=== PATIENT | female | born 1990 | race Caucasian/White ===

== ENCOUNTER 2016-05-16 12:42 | Emergency (ER) | payer BC ==
[2016-05-16 13:06] VITALS: BP 142/89
--- NOTE | 2016-05-16 14:41 | EDM.PDOC ---
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 She started with spotting 3 days ago and then passed clots Rosa. Today she passed what she thought was tissue. She reports cramping and rates the pain 4/10. She had sharp pain about 1week ago which resolved. She had a negative home test two weeks ago but is worried that she is miscarrying. She is 1 para 1. No previous miscarriages. She has 1 living child. Her periods are normally regular and not this heavy. She reports mild nausea 1 week ago. She reports feeling lightheaded for a couple minutes today but otherwise no syncope or near syncope. She denies dysuria, frequency, urgency, and flank pain. She has a history of ovarian cysts and says she felt like she had a cyst last week. Her PCP is Leila Borrego [facility] [employer] [facility] [employer] and she saw Dr. Ortiz with her first . - Related Data Allergies/ADRs: Allergies Allergy/AdvReac Type Severity Reaction Status Date / Time No Known Allergies Allergy Verified 05/16/16 13:07 Home Meds: Home Meds Albuterol Inhaler. 2 puff INH Q6H PRN 09/10/14 [History] Citalopram [Citalopram HBr] 40 mg PO DAILY 09/10/14 [History] Fluticasone/Salmeterol [Advair Diskus 250-50] 1 puff INH DAILY PRN 09/10/14 [ History] Past Medical History - Past Health History Medical/Surgical History: Denies Medical/Surgical History Respiratory History: Reports: Asthma Social & Family History - Tobacco Use Smoking Status *Q: Never Smoker Second Hand Smoke Exposure: No - Alcohol Use Days Per Week of Alcohol Use: 0 - Recreational Drug Use Recreational Drug Use: No ED ROS GENERAL - Review of Systems Review Of Systems: See Below Constitutional: Reports: no symptoms. Denies: fever, chills, diaphoresis Respiratory: Reports: No Symptoms. Denies: Shortness of Breath Cardiovascular: Reports: No symptoms. Denies: Chest pain GI/Abdominal: Reports: Abdominal pain, Nausea. Denies: Diarrhea, Vomiting : Reports: other (passing clots ). Denies: dysuria, flank pain, frequency, urgency ED EXAM, RENAL/ - Physical Exam Exam: See Below Exam Limited By: No limitations General Appearance: alert, no apparent distress, obese Respiratory/Chest: no respiratory distress, lungs clear, normal breath sounds Cardiovascular: regular rate, rhythm GI/Abdominal: normal bowel sounds, soft, non tender, no distention (Female) Exam: Other (mild tenderness over pelvic region with deep palpation , no peritioneal inflammation signs, no guarding, no rigidity) Back Exam: normal inspection, full range of motion. No: CVA tenderness (L), CVA tenderness (R) Course - Vital Signs Last Recorded V/S: Last Vital Signs Temp 97.7 F 05/16/16 13:05 Pulse 69 05/16/16 13:05 Resp BP 142/89 H 05/16/16 13:05 Pulse Ox 100 05/16/16 13:05 - Orders/Labs/Meds Labs: Laboratory Tests 05/16/16 05/16/16 05/16/16 Range/Units 13:30 13:45 13:45 WBC 8.12 (3.98-10.04) K/mm3 RBC 4.48 (3.98-5.22) M/mm3 Hgb 12.7 (11.2-15.7) gm/L Hct 37.8 (34.1-44.9) % MCV 84.4 (79.4-94.8) fl MCH 28.3 (25.6-32.2) pg MCHC 33.6 (32.2-35.5) g/dl RDW Std Deviation 41.1 (36.4-46.3) fL Plt Count 311 (182-369) K/mm3 MPV 9.8 (9.4-12.3) fl HCG, Qual Negative (NEGATIVE) Urine Color Yellow (Yellow) Urine Appearance Clear (Clear) Urine pH 5.5 (5.0-8.0) Ur Specific Arthur > or = 1.030 (1.005-1.030) Urine Protein Negative (Negative) Urine Glucose (UA) Negative (Negative) Urine Ketones Trace H (Negative) Urine Occult Blood 3+ H (Negative) Urine Nitrite Negative (Negative) Urine Bilirubin Negative (Negative) Urine Urobilinogen 0.2 (0.2-1.0) Ur Leukocyte Esterase Trace H (Negative) Urine RBC 5-10 H (0-5) /hpf Urine WBC 0-5 (0-5) /hpf Ur Epithelial Cells 0-5 (0-5) /hpf Urine Bacteria Few (FEW) /hpf Urine Mucus Few (FEW) /hpf - Re-Assessments/Exams Free Text/Narrative Re-Assessment/Exam: Serum Hcg is negative ruling out ectopic and miscarriage. CBC reveals normal WBC making appendicitis or other infectious causes unlikely. H&H is within normal limits. UA is negative for infection. Patient was reassured regarding negative test. No additional emergent workup is indicated at this time. Instructed to use NSAIDs for symptom relief. She is to f/u with her PCP Leila Borrego in 1 week. Educated on return precautions. Discharge instructions as documented. Departure - Departure Time of Disposition: 14:39 Disposition: Home, Self-Care 01 Condition: good Clinical Impression: Vaginal bleeding, abnormal Referrals: Margarita Borrego, [facility] [Primary Care Provider] - Forms: ED Department Discharge Additional Instructions: Ibuprofen or Aleve as needed for pain or cramping Return to ER if symptoms worsen or with any additional concerns Follow-up with Leila Borrego in 1 week for recheck.
== END 2016-05-16 14:50 | disposition home or self-care (01) ==
LOC: JD.ED 12:42
DX: N93.9 Abnormal uterine and vaginal bleeding, unspecified (principal); J45.909 Unspecified asthma, uncomplicated; Z79.899 Other long term (current) drug therapy
CPT/HCPCS: 36415; 81001; 84703; 85027; 99282; 99284

== ENCOUNTER 2016-07-17 08:07 | Day surgery (SDC) | payer BC ==
[~2016-07-17 08:07] MED LIST: Lactated Ringers 1,000 ML IV SCH; Lidocaine 1%/Sod Bicarbonate in NS 8.4% 1 ML Syringe IV PRN; Lidocaine 1%/Sod Bicarbonate in NS 8.4% 1 ML Syringe PRN; Propofol 200 MG/20 ML SDV ONE; Sodium Chloride 0.9% 10 ML Syringe FLUSH PRN
--- NOTE | 2016-07-17 08:32 | PCM.PREANE ---
Preanesthetic Assessment - Anesthesia/Transfusion/Family Hx Anesthesia History: Prior Anesthesia Without Reaction Family History of Anesthesia Reaction: No Transfusion History: No Prior Transfusion(s) - Review of Systems General: No Symptoms Pulmonary: No Symptoms Cardiovascular: No Symptoms Gastrointestinal: No symptoms, Abdominal pain (frequently lately) Neurological: No Symptoms Other: Reports: Easy Bruising, Depression, Anxiety - Physical Assessment NPO Status Date: 07/16/16 NPO Status Time: 22:30 Pulse: 93 O2 Sat by Pulse Oximetry: 96 Respiratory Rate: 16 Blood Pressure: 131/86 Temperature: 98.7 F Height: 5 ft 6 in Weight: 99.79 kg ASA Class: 2 Mental Status: Alert & Oriented x3 Airway Class: Mallampati = 1 Dentition: Reports: Normal Dentition Thyro-Mental Finger Breadths: 3 Mouth Opening Finger Breadths: 3 ROM/Head Extension: Full Lungs: Clear to auscultation, Normal respiratory effort Cardiovascular: Regular Rate, Regular Rhythm - Lab Values: urine hcg negative today 07/17/16 - Allergies Allergies/Adverse Reactions: Allergies Allergy/AdvReac Type Severity Reaction Status Date / Time No Known Allergies Allergy Verified 07/17/16 08:47 - Blood Blood Available: No - Acknowledgements Anesthesia Type Planned: MAC Pt an Appropriate Candidate for the Planned Anesthesia: Yes Alternatives and Risks of Anesthesia Discussed w Pt/Guardian: Yes Pt/Guardian Understands and Agrees with Anesthesia Plan: Yes PreAnesthesia Questionnaire - Past Health History Medical/Surgical History: Denies Medical/Surgical History HEENT History: Reports: Allergic Rhinitis Cardiovascular History: Reports: Hypertension (history toward end of ) Respiratory History: Reports: Asthma Gastrointestinal History: Reports: Chronic Diarrhea (when she gets abd pains) Genitourinary History: Reports: None AUDITOR TAX History: Reports: Musculoskeletal History: Reports: None Neurological History: Reports: None Psychiatric History: Reports: Anxiety, Depression Endocrine/Metabolic History: Reports: None, Obesity/BMI 30+ Hematologic History: Reports: None Immunologic History: Reports: None Oncologic (Cancer) History: Reports: None Dermatologic History: Reports: None - Past Surgical History Head Surgeries/Procedures: Reports: None GI Surgical History: Reports: Cholecystectomy - SUBSTANCE USE Smoking Status *Q: Never Smoker Tobacco Use Within Last Twelve Months: No Second Hand Smoke Exposure: No Days Per Week of Alcohol Use: 0 (rarely bid a month) Recreational Drug Use History: No - HOME MEDS Home Medications: Home Meds Citalopram [Citalopram HBr] 40 mg PO DAILY 09/10/14 [History] Fluticasone/Salmeterol [Advair Diskus 250-50] 1 puff INH BID PRN 07/16/16 [ History] - CURRENT (IN HOUSE) MEDS Current Meds: Current Medications Lactated Ringer's (Ringers, Lactated) 1,000 mls @ 125 mls/hr IV ASDIRECTED PEDRITO Stop: 07/17/16 23:00 Lidocaine/Sodium Bicarbonate (Buffered Lidocaine 1% In Ns 8.4%) 0.25 ml .XX ONETIME PRN PRN Reason: Prior to IV Start Stop: 07/17/16 18:00 Sodium Chloride (Saline Flush) 10 ml FLUSH ASDIRECTED PRN PRN Reason: Keep Vein Open Stop: 07/17/16 18:00 Discontinued Medications Lactated Ringer's (Ringers, Lactated) 1,000 mls @ 125 mls/hr IV ASDIRECTED PEDRITO Stop: 11/08/15 16:00 Lidocaine/Sodium Bicarbonate (Buffered Lidocaine 1% In Ns 8.4%) 0.25 ml IV ONETIME PRN PRN Reason: Prior to IV Start Stop: 11/08/15 16:00 Propofol (Diprivan 20 Ml) Confirm Administered Dose 200 mg .ROUTE .STK-MED ONE Stop: 07/17/16 07:01 Sodium Chloride (Saline Flush) 10 ml FLUSH ASDIRECTED PRN PRN Reason: Keep Vein Open Stop: 11/08/15 16:00
[2016-07-17] MEDS ORDERED: Propofol 200 MG/20 ML SDV ONE (09:16)
--- NOTE | 2016-07-17 09:31 | PCM.OPNOTE ---
- General Post-Op/Procedure Note Date of Surgery/Procedure: 07/17/16 Operative Procedure(s): colonoscopywith ileal and rectal biopsies Findings: normal terminal ileum and colon Pre Op Diagnosis: chronic diarrhea Post-Op Diagnosis: normal colonoscopy Anesthesia Technique: MAC, Moderate sedation Primary Surgeon: Jesse Cole Pathology: ileal and rectal biopsies times 2 EBL in mLs: 0 Complications: None Condition: Good Free Text/Narrative:: After adequate IV sedation and analgesia was obtained the patient was placed on her left side. Perianal inspection and digital rectal examination were normal. A lubricated colonoscope was inserted into the rectum then advanced under direct vision to the cecum without difficulty. The bowel preparation was excellent. I entered the terminal ileum, which was grossly normal. Random biopsies were taken for histologic evaluation. The cecum, right colon, transverse, and descending colons were endoscopically normal with no inflammatory changes or mass lesions seen. The sigmoid and rectum were unremarkable as well. Two random biopsies were taken in the rectum for review. Photographs were taken for the patient and for the record. Air was removed, as I finished the procedure, which she tolerated well. There were no procedure complications.
--- NOTE | 2016-07-17 09:31 | PCM48HPAN ---
Post Anesthesia Note - EVALUATION WITHIN 48HRS OF ANESTHETIC Vital Signs in Normal Range: Yes Patient Participated in Evaluation: Yes Respiratory Function Stable: Yes Airway Patent: Yes Cardiovascular Function Stable: Yes Hydration Status Stable: Yes Pain Control Satisfactory: Yes Nausea and Vomiting Control Satisfactory: Yes Mental Status Recovered: Yes
[2016-07-17 09:54] VITALS: BP 118/81
== END 2016-07-17 10:16 | disposition home or self-care (01) ==
LOC: JD.SDS 08:07
PROVIDERS: ATTEND Surgery
DX: R19.7 Diarrhea, unspecified (principal); F41.9 Anxiety disorder, unspecified; F32.9 Major depressive disorder, single episode, unspecified; I10 Essential (primary) hypertension; J45.909 Unspecified asthma, uncomplicated; E66.9 Obesity, unspecified; Z68.30 Body mass index [BMI] 30.0-30.9, adult; Z90.49 Acquired absence of other specified parts of digestive tract; Z79.899 Other long term (current) drug therapy
CPT/HCPCS: 45380; 81025; 88305; J7120; J2704

== ENCOUNTER 2021-05-03 12:08 | Emergency (ER) | payer OTHER, BC ==
[2021-05-03 12:26] VITALS: BP 143/99; PULSE 84
[2021-05-03] MEDS ORDERED: Ketorolac 60 MG/2 ML SDV IM ONE (12:42)
== END 2021-05-03 14:00 | disposition home or self-care (01) ==
LOC: JD.ED 12:08
DX: S92.355A Nondisplaced fracture of fifth metatarsal bone, left foot, initial encounter for closed fracture (principal); I10 Essential (primary) hypertension; E66.9 Obesity, unspecified; Z68.36 Body mass index [BMI] 36.0-36.9, adult; Z86.16 Personal history of COVID-19; W18.30XA Fall on same level, unspecified, initial encounter
CPT/HCPCS: 73610; 73630; 96372; 99283; J1885; 29515

== ENCOUNTER 2021-11-27 21:00 | Emergency (ER) | payer BC ==
[2021-11-27 21:39] VITALS: BP 119/89; PULSE 83
[2021-11-27] MEDS ORDERED: Benztropine 1 MG Tab PO ONE (22:20)
[2021-11-27] MEDS ORDERED: Sodium Chloride 0.9% 1,000 ML IV ONE (22:20)
[2021-11-27] MEDS ORDERED: Ondansetron 4 MG/2 ML SDV IVPUSH ONE (22:20)
[2021-11-27] MEDS ORDERED: Haloperidol Lactate 5 MG/ML SDV IM ONE (22:20)
== END 2021-11-27 23:55 | disposition home or self-care (01) ==
LOC: JD.ED 21:00
DX: G43.909 Migraine, unspecified, not intractable, without status migrainosus (principal); E66.9 Obesity, unspecified; Z68.30 Body mass index [BMI] 30.0-30.9, adult
CPT/HCPCS: 70450; 70486; 96361; 96372; 96374; 99284; A9270; J1630; J2405; J7030

== ENCOUNTER 2022-09-14 21:02 | Emergency (ER) | payer BC ==
[2022-09-15 00:58] LABS: BASOPHILS ABSOLUTE AUTO 0.02 K/mm3 (0.01-0.08); BASOPHILS PERCENT AUTO 0.3 % (0.1-1.2); EOSINOPHILS ABSOLUTE AUTO 0.01 K/mm3 (0.04-0.36); EOSINOPHILS PERCENT AUTO 0.2 (0.7-5.8); HEMATOCRIT 34.5 % (34.1-44.9); HEMOGLOBIN 11.1 gm/dl (11.2-15.7); IMMATURE GRAN ABSOLUTE AUTO 0.01 K/mm3 (0.00-0.10); IMMATURE GRAN PERCENT AUTO 0.2 % (<=1.0); LYMPHOCYTES ABSOLUTE AUTO 2.44 K/mm3 (1.18-3.74); LYMPHOCYTES PERCENT AUTO 37.4 % (19.3-51.7); MEAN CORPUSCULAR HEMOGLOBIN 27.3 pg (25.6-32.2); MEAN CORPUSCULAR HGB CONC 32.2 g/dl (32.2-35.5); MEAN PLATELET VOLUME 9.6 fl (9.4-12.3); MONOCYTES ABSOLUTE AUTO 0.54 K/mm3 (0.24-0.36); MONOCYTES PERCENT AUTO 8.3 % (4.7-12.5); NEUTROPHILS PERCENT AUTO 53.6 % (34.0-71.1); PLATELET COUNT,PLT 312 K/mm3 (182-369); RED BLOOD CELL COUNT 4.06 M/mm3 (3.98-5.22); WHITE BLOOD CELL COUNT,WBC 6.52 K/mm3 (3.98-10.04)
[2022-09-15] MEDS ORDERED: Ibuprofen 800 MG Tab PO ONE (01:19)
[2022-09-15] MEDS ORDERED: Acetaminophen 325 MG Tab PO ONE (01:19)
[2022-09-15 01:23] LABS: A/G RATIO 1.1 (1-2); ALANINE AMINOTRANSFERASE,ALT 19 U/L (14-59); ALBUMIN 3.6 g/dl (3.4-5.0); ALKALINE PHOSPHATASE 73 U/L (46-116); ANION GAP 12.5 (5-15); ASPARTATE AMNIOTRANSFERASE,AST 15 U/L (15-37); BILIRUBIN TOTAL 0.2 mg/dL (0.2-1.0); BLOOD UREA NITROGEN,BUN 12 mg/dL (7-18); CALCIUM 8.7 mg/dL (8.5-10.1); CARBON DIOXIDE,CO2 26 mEq/L (21-32); CHLORIDE,CL 101 mEq/L (98-107); CREATININE 0.8 mg/dL (0.55-1.02); EST CRCL DRUG DOSING (CG) 99.99 mL/min; ESTIMATED GFR 102 mL/min (>60); GLUCOSE RANDOM 90 mg/dL (70-99); POTASSIUM,K 3.5 mEq/L (3.5-5.1); PROTEIN TOTAL,TP 6.9 g/dl (6.4-8.2); SODIUM,NA 136 mEq/L (136-145)
[2022-09-15 01:37] LABS: TROPONIN I HIGH SENSITIVITY < 4 pg/mL (<=51)
[2022-09-15 01:49] VITALS: BP 124/78; PULSE 74
== END 2022-09-15 01:47 | disposition home or self-care (01) ==
LOC: JD.ED 21:02
DX: R07.89 Other chest pain (principal); I10 Essential (primary) hypertension; J45.909 Unspecified asthma, uncomplicated; E66.9 Obesity, unspecified; Z68.38 Body mass index [BMI] 38.0-38.9, adult; Z86.16 Personal history of COVID-19
CPT/HCPCS: 36415; 71045; 80053; 84484; 85025; 85379; 93005; 99285; A9270; 93010; 99283

== ENCOUNTER 2024-05-13 17:00 | Emergency (ER) | payer BC ==
[2024-05-13 17:22] VITALS: BP 150/93; PULSE 87
[2024-05-13 18:23] LABS: BASOPHILS PERCENT AUTO 0.2 % (0.0-1.0); EOSINOPHILS PERCENT AUTO 0.1 % (0.0-6.0); HEMATOCRIT 35.8 % (37.0-47.0); HEMOGLOBIN 11.2 gm/dl (12.0-16.0); IMMATURE GRAN ABSOLUTE AUTO 0.05 K/mm3 (0.00-0.05); IMMATURE GRAN PERCENT AUTO 0.4 % (0.0-0.4); LYMPHOCYTES ABSOLUTE AUTO 1.1 K/mm3 (1.0-4.8); MEAN CORPUSCULAR HEMOGLOBIN 27.7 pg (28.0-32.0); MEAN CORPUSCULAR HGB CONC 31.3 g/dl (32.0-36.0); MEAN CORPUSCULAR VOLUME 88.6 fl (83.0-99.0); MEAN PLATELET VOLUME 9.5 fl (9.4-12.3); MONOCYTES ABSOLUTE AUTO 0.5 K/mm3 (0.0-0.8); MONOCYTES PERCENT AUTO 3.7 % (0.0-8.0); NEUTROPHILS ABSOLUTE AUTO 10.7 K/mm3 (1.8-7.7); NEUTROPHILS PERCENT AUTO 86.6 % (41.0-71.0); PLATELET COUNT,PLT 355 K/mm3 (150-400); RED BLOOD CELL COUNT 4.04 M/mm3 (4.10-5.30); WHITE BLOOD CELL COUNT,WBC 12.39 K/mm3 (3.9-11.3)
[2024-05-13 18:57] LABS: ALBUMIN 3.6 g/dl (3.4-5.0); ANION GAP 13.9 (5-15); BILIRUBIN TOTAL 0.3 mg/dL (0.2-1.0); BUN/CREATININE RATIO 16.3 (14-18); C-REACTIVE PROTEIN 0.1 mg/dL (<0.30); CALCIUM 9.3 mg/dL (8.5-10.1); CREATININE 0.8 mg/dL (0.55-1.02); EST CRCL DRUG DOSING (CG) 105.51 mL/min; POTASSIUM,K 3.9 mEq/L (3.5-5.1); PROTEIN TOTAL,TP 7.3 g/dl (6.4-8.2)
[2024-05-13 19:09] LABS: CORONAVIRUS COVID-19 NAA NEGATIVE (NEGATIVE); INFLUENZA A NAA NEGATIVE (NEGATIVE); RESPIRATORY SYNCYTIAL VIR NAA NEGATIVE (NEGATIVE)
== END 2024-05-13 19:37 | disposition home or self-care (01) ==
LOC: JD.ED 17:00
DX: J32.9 Chronic sinusitis, unspecified (principal); J45.909 Unspecified asthma, uncomplicated; I10 Essential (primary) hypertension; Z79.899 Other long term (current) drug therapy; Z79.51 Long term (current) use of inhaled steroids; Z86.16 Personal history of COVID-19
CPT/HCPCS: 0241U; 36415; 71046; 80053; 85025; 85379; 86140; 99285; 99283